=== PATIENT | female | born 1955 | race Caucasian/White ===

== ENCOUNTER 2016-03-05 19:28 | Emergency (ER) | payer SELFPAY ==
[2016-03-05 20:10] VITALS: BP 197/97
[2016-03-05] MEDS ORDERED: Amoxicillin/Clavulanate TAB* 875 MG PO ONE (20:47)
--- NOTE | 2016-03-05 20:57 | UC ---
Dental HPI - HPI Summary HPI Summary: LEFT UPPER DENTAL PAIN (#11, #12, #13) AND FACIAL SWELLING SINCE LAST NIGHT. HISTORY OF BAD TEETH, JUST MOVED BACK TO THE AREA. HAS NOT RE-ESTABLISHED PRIMARY CARE OR DENTAL SERVICES. HAS TAKEN AMOXICILLIN AND PCN PRODUCTS WITHOUT DIFFICULTY. - History of Current Complaint Chief Complaint: UCDentalProblem Stated Complaint: DENTAL PAIN Time Seen by Provider: 03/05/16 20:14 Hx Obtained From: Patient ?: No Onset/Duration: Gradual Onset, Lasting Hours, Still Present Severity: Moderate Aggravating: Chewing Related History: Previous Dental Care on Same Tooth, Swelling - Allergies/Home Medications Allergies/Adverse Reactions: Allergies Allergy/AdvReac Type Severity Reaction Status Date / Time ANTIBIOTIC - ?NAME Allergy Severe Rash Uncoded 03/05/16 20:10 Home Medications: Home Medications Herbs* 03/05/16 [History] Ibuprofen TAB* [Advil TAB*] 600 mg PO PRN 03/05/16 [History] PMH/Surg Hx/FS Hx/Imm Hx Previously Healthy: Yes - Surgical History Surgical History: Yes Surgery Procedure, Year, and Place: TONSILLECTOMY, - Family History Known Family History: Negative: Cardiac Disease - Social History Occupation: Unemployed Lives: With Family Alcohol Use: "TINCTURES" Substance Use Type: None Smoking Status (MU): Never Smoked Tobacco Review of Systems Constitutional: Negative Skin: Negative Eyes: Negative ENT: Dental Pain Respiratory: Negative Cardiovascular: Negative Gastrointestinal: Negative Genitourinary: Negative Motor: Negative Neurovascular: Negative Musculoskeletal: Negative Neurological: Negative Psychological: Negative All Other Systems Reviewed And Are Negative: Yes Physical Exam Triage Information Reviewed: Yes Appearance: Well-Appearing, No Pain Distress, Well-Nourished Vital Signs: Initial Vital Signs Temp 97.8 F 03/05/16 20:05 Pulse 75 03/05/16 20:05 Resp 16 03/05/16 20:05 BP 197/97 03/05/16 20:05 Pulse Ox 96 03/05/16 20:05 Vital Signs Reviewed: Yes Eye Exam: Normal Eyes: Positive: Conjunctiva Clear ENT Exam: Normal ENT: Positive: Normal ENT inspection, Hearing grossly normal, Pharynx normal, TMs normal Dental: Positive: Percussion Tenderness @ - 11, 12, 13, Gross Decay/Caries @, Abscess @ - LEFT MAXILLARY TENDERNESS, SWELLING Dental Complaint Course/Dx - Differential Dx/Diagnosis Differential Diagnosis/Dx: Dental Abscess, Dental Caries, Fractured Tooth Provider Diagnoses: GROSS DECAY/CARIES. LEFT ANTERIOSUPERIOR/MAXILLARY DENTAL ABCESS Discharge - Discharge Plan Condition: Stable Disposition: HOME Prescriptions: Amoxicillin/Clavulanate TAB* [Augmentin TAB 875*] 875 mg PO BID #20 tab Patient Education Materials: Dental Abscess (ED), Dental Caries (ED), Toothache (ED) Referrals: [facility] [place] PHYSICIAN REFERRAL [Outside] Non Staff,Doctor [Primary Care Provider] - Images Dental: 1 - POOR DENTITION, TENDER HERE
== END 2016-03-05 21:13 | disposition home or self-care (01) ==
LOC: UCEAST 19:28
DX: K02.9 Dental caries, unspecified (principal); K04.7 Periapical abscess without sinus; Z88.1 Allergy status to other antibiotic agents
CPT/HCPCS: 99202; A9270-GY; G0463